=== PATIENT | female | born 1985 | race Caucasian/White ===

== ENCOUNTER → 2020-09-05 14:05 | Outpatient (CLI) | payer OTHER, SELFPAY ==
--- NOTE | ~2020-09-05 | MR_ITS ---
EXAMINATION: MR brain/brain stem wo/w con EXAM DATE: 09/05/2020 15:27 INDICATION: Headache disorder, neck pain, generalized muscle weakness headache disorder. TECHNIQUE: Magnetic resonance imaging (MRI) of the brain/brain stem obtained without contrast. Sagit jose carlos T1, axial diffusion, gradient echo (T2*), T1, T2, FLAIR sequences obtained. Demyelinating protoco l was utilized including sagittal FLAIR images. Patient was then injected with 12 cc intravenous M ultihance contrast. Axial and coronal postcontrast T1 weighted sequences obtained. There is no prior study for comparison. FINDINGS: There are no areas of restricted diffusion to suggest acute infarction. There is no acute hemorrhage seen on the T2*, a hemosiderin sensitive sequence. No intraparenchymal brain mass. The ve ntricles are normal in size. There are no extra-axial collections. Flow voids are seen in the cereb ral arteries on the T2-weighted sequences consistent with their expected patency. The orbits are unr emarkable. Soft tissue is unremarkable. There are no areas of abnormal enhancement on the postcont rast images. IMPRESSION: 1. Normal brain MRI examination. Reviewed, dictated and finalized at location B. [facility]ANO
[2020-09-05 14:57] LABS: Estimated Glomerular Filt Rate > 60
== END ==
DX: R51.9 Headache, unspecified (principal); M54.2 Cervicalgia; M62.81 Muscle weakness (generalized)
CPT/HCPCS: 70553; A9577